=== PATIENT | female | born 1945 | race Caucasian/White ===

== ENCOUNTER 2024-05-06 05:27 | Day surgery (SDC) | payer MEDICARE ==
[2024-05-06] VITALS (12 sets, daily range): BP systolic 138–168; BP diastolic 58–81; PULSE 51–62; TEMP 97.6–98.1
[~2024-05-06] VITALS: Ht 160 cm; Wt 89.0 kg
[~2024-05-06 05:27] MED LIST: Celecoxib 400 MG PREOP X1 PO SCH; LR 1,000 ML IV SCH; Pregabalin 150 MG CAP PREOP X1 PO SCH
[2024-05-06] MEDS ORDERED: Acetaminophen 500 MG TAB PO SCH ×2 (06:00→14:00)
[2024-05-06] MEDS ORDERED: Lidocaine PF 2% (20 MG/ML) 5 ML VIAL ONE (06:22)
[2024-05-06] MEDS ORDERED: Midazolam 2 MG/2 ML VIAL ONE (06:22)
[2024-05-06] MEDS ORDERED: fentaNYL 50 MCG/ML 2 ML VIAL ONE (06:22)
[2024-05-06] MEDS ORDERED: NS 10 ML IV ONE (06:22)
[2024-05-06] MEDS ORDERED: dexAMETHasone 10 MG/ML VIAL ONE (06:22)
[2024-05-06] MEDS ORDERED: Tranexamic Acid 1,000 MG/10 ML VIAL ONE (06:24)
[2024-05-06] MEDS ORDERED: COZAAR 50MG50 MG/TAB PO (06:58)
[2024-05-06] MEDS ORDERED: SYNTHROID 0.10.15 MG PO (06:59)
[2024-05-06] MEDS ORDERED: Naloxone 0.4 MG/ML VIAL IV PRN (07:00)
[2024-05-06] MEDS ORDERED: oxyCODONE 5 MG TAB PO PRN (07:00)
[2024-05-06] MEDS ORDERED: Magnes Hydrox (MOM) 80 MG/ML 30 ML CUP PO PRN (07:00)
[2024-05-06] MEDS ORDERED: Ondansetron 4 MG/2 ML VIAL IV PRN ×2 (07:00→07:30)
[2024-05-06] MEDS ORDERED: AMARYL 2MG T2 MG/TAB PO (07:01)
[2024-05-06] MEDS ORDERED: LASIX 20MG TABL20 MG PO (07:02)
[2024-05-06] MEDS ORDERED: ACTOS 15MG TAB15 MG PO (07:02)
[2024-05-06] MEDS ORDERED: PAXIL 20MG20 MG PO (07:03)
[2024-05-06] MEDS ORDERED: NORVASC 10MG10 MG PO (07:03)
[2024-05-06] MEDS ORDERED: TENORMIN 2525 MG/TAB PO (07:04)
[2024-05-06] MEDS ORDERED: MEVACOR 20M20 MG/TAB PO (07:05)
[2024-05-06] MEDS ORDERED: DESYREL 100MG100 MG PO (07:06)
[2024-05-06] MEDS ORDERED: NEURONTIN300 MG/CAP PO (07:06)
[2024-05-06] MEDS ORDERED: EUTHYROX175 MCG PO ×2 (07:07→11:09)
[2024-05-06] MEDS ORDERED: VESICARE10 MG PO (07:07)
[2024-05-06] MEDS ORDERED: fentaNYL 50 MCG/ML 1 ML SYRINGE/VIAL [PACU/SDC ONLY] IV PRN (07:30)
[2024-05-06] MEDS ORDERED: Morphine 2 MG/1 ML VIAL [PACU/SDC ONLY] IV PRN (07:30)
[2024-05-06] MEDS ORDERED: Meperidine 50 MG/ML 1 ML VIAL IV PRN (07:30)
[2024-05-06] MEDS ORDERED: LR 1,000 ML IV ONE (08:00)
[2024-05-06] MEDS ORDERED: Apixaban 2.5 MG TABLET PO SCH (09:00)
[2024-05-06] MEDS ORDERED: Topical Skin Adhesive 1 EACH (1 ML) TOP ONE (09:04)
--- NOTE | 2024-05-06 10:10 | NUR ---
PT ARRIVED FROM PACU. PT IS AXOX4. PTS VSS. PT ON RA. PT ORIENTED TO ROOM AND FLOOR. CALL LIGHT GIVEN. PT INSTRUCTED TO CALL WITH ALL NEEDS. PT TOLERATING WATER AND ICE WITH NO NAUSEA. 1015-LENI HUERTA PAGED TO CLARIFY ELIQUIS.
--- NOTE | 2024-05-06 10:47 | NUR ---
1042-THIS RN RECEIVED A CALL FROM LENI JOVEL STILL IN SURGERY. NOT URGENT. WILL RETURN CALL AFTER SURGERY.
--- NOTE | 2024-05-06 10:58 | NUR ---
LENI HUERTA CALLED THIS RN. CLARIFIED ELIQUIS TO START AT HS.
[2024-05-06] MEDS ORDERED: ceFAZolin 2 G in Water For Injection,Sterile 20 ML IV SCH (12:00)
--- NOTE | 2024-05-06 15:20 | NUR ---
SW met with patient to complete initial assessment for discharge planning. Patient verified that she lives at home in [place] with her /DPOA Vance Joaquin ([phone]). She states that her is currently in another hospital so she will discharge home alone. Patient lists her son Gm as a second contact ([phone]). Patient sees Dr. Diane Munguia as her PCP and uses [facility] in [place]. She has a 4WW, cane, walk in shower with built in bench. Patient states that she is scheduled for OP therapy with [facility]. Patient informed that discharge orders will be faxed to OP therapy when she discharges. She states her son will transport her home at discharge. Discussed plan for assistance due to returning home alone. Patient states she may need to hire a caregiver for a short time. Discharge plan: Home with OP therapy.
[2024-05-06] MEDS ORDERED: Sennosides/Docusate 8.6-50 MG TAB PO SCH (21:00)
--- NOTE | 2024-05-06 21:54 | NUR ---
Patient resting in bed, assessed at this time, see shift assessment, thought that she had her surgery done yesterday and today is sunday, reorientated this patient, denies pain at this time, took her pills fine, dressing to right knee clean, dry and intact, did get up to the bathroom from the dayshift, not agreeable to walk at this time, denies further needs, call light and personal items within reach, will continue to monitor.
[2024-05-07 04:00] VITALS: BP 151/59; PULSE 63; TEMP 98
--- NOTE | 2024-05-07 04:45 | NUR ---
Patient reports right knee pain, medicated with oxycodone at this time, few minutes after she ambulated the hallway with x1 assist with gaitbelt and walker. Few minutes after she complained of nausea, denies the need for nausea medicine, denies further needs, will continue to monitor.
--- NOTE | 2024-05-07 06:15 | NUR ---
Patient reports her nausea is a lot better, scheduled tylenol given at this time, up on a chair, denies further needs.
[2024-05-07] MEDS ORDERED: ROXICODONE 55 MG/TAB PO (06:16)
[2024-05-07] MEDS ORDERED: SENEXON-S 50-81 EACH PO (06:17)
[2024-05-07] MEDS ORDERED: ELIQUIS 2.5 PO (06:18)
[2024-05-07 06:41] LABS: HEMOGLOBIN 11.6 g/dl (12.5-16.0)
[2024-05-07 06:45] LABS: HEMATOCRIT 34.3 % (37.0-47.0)
[2024-05-07 07:35] VITALS: BP 148/76; PULSE 54; TEMP 98.9
--- NOTE | 2024-05-07 09:00 | NUR ---
Pt doing well this morning. Pt tolerable, PRN pain medication given to prepare for therapy today. PT aware that she will be going home, informed her that PT/OT would be around to work with her before she leaves. Pt verbalizes understanding. No needs at this time
[2024-05-07 11:12] VITALS: BP 137/77; PULSE 64; TEMP 97.9
--- NOTE | 2024-05-07 11:57 | NUR ---
Patient cleared for discharge to home today. JAMIN met with patient, with daughter in law Nina, to discuss discharge. Patient recommended for FWW instead of the 4WW she has at home. Patient is choosing to have HH services instead of OP therapy. Medicare.gov list of HH providers given to patient to review. She chose [facility]. Referral and discharge orders faxed. JAMIN faxed DME order to Dr. Gómez's office for signature for FWW. Patient asked that the walker be ordered from [facility]. JAMIN spoke with Dr. Gómez via phone to request signature on order and will fax DME order to Pharmacy once received. Patient's son to pick her up for transport home.
--- NOTE | 2024-05-07 12:47 | NUR ---
Reviewed discharge instructions with pt and son. Discussed follow up appointment, prescriptions and surgical knee care. Informed pt that she will have another session of physician therapy and then we could escort her out via wheelchair. All questions answered at this time
--- NOTE | 2024-05-07 14:40 | NUR ---
PT done working with pt. Thigh high ly alvarez applied and pt escorted out via wheelchair with her son.
== END 2024-05-07 14:40 | disposition home health service (06) ==
LOC: SDCO 05:27 → SURG 10:10 → SDCO 05-07 14:40
PROVIDERS: Orthopaedic Surgery
DX: M17.11 Unilateral primary osteoarthritis, right knee (principal); I10 Essential (primary) hypertension; Z79.899 Other long term (current) drug therapy; Z86.711 Personal history of pulmonary embolism; Z79.01 Long term (current) use of anticoagulants; Z90.89 Acquired absence of other organs
CPT/HCPCS: OP; A6197; A9284; C1713; C1776; J0665; J0688; J0690; J1100; J2250; J2704; J2795; J3010; J7120